=== PATIENT | female | born 1975 | race Caucasian/White ===

== ENCOUNTER 2017-02-05 13:16 | Outpatient (CLI) | payer OTHER ==
--- NOTE | 2017-02-05 15:08 | Diagnostic Imaging Report ---
Indication: breast nodules. Followup was recommended. Technique: Grayscale and duplex Doppler imaging of the left breast at 5 to 7:00 performed. Comparison: 07/21/16 diagnostic mammogram and ultrasound Findings: A followup ultrasound was performed. At the 6 to 7:00 position of the left breast there are 2 small adjacent hypoechoic nodules measuring 2 mm and 3 mm. These may be cystic and if solid appear benign. The findings appear unchanged from the last examination. Impression: 2 small nodules 6 to 7:00 position left breast. No change. BI-RADS 2
== END 2017-02-05 15:16 | disposition home or self-care (01) ==
LOC: ULS 13:16
DX: N63 Unspecified lump in breast (principal)